=== PATIENT | female | born 1980 | race American Indian/Alaskan Native ===

== ENCOUNTER 2017-08-28 06:22 | Day surgery (SDC) | payer MEDICAID ==
[2017-08-28] MEDS ORDERED: WATER FOR IRRIG STERILE IR ONE (07:08)
[2017-08-28] MEDS ORDERED: DIPRIVAN 10 MG/ML IV ONE ×2 (07:51→08:36)
[2017-08-28] MEDS ORDERED: NACL 0.9% 1000 ML 1,000 ML IV SCH (08:00)
--- NOTE | 2017-08-28 08:12 | Anesthesia Day of Surgery ---
Anesthesia Day of Surgery - Day of Surgery Patient Examined: Yes Patient H&P Reviewed: Yes Patient is NPO: Yes
--- NOTE | 2017-08-28 08:12 | Anesthesia Consultation ---
Anesthesia Consult and Med Hx Date of service: 08/28/17 - Airway Anesthetic Teeth Evaluation: Good ROM Head & Neck: Adequate Mental/Hyoid Distance: Adequate Mallampati Class: Class II Intubation Access Assessment: Probably Good - Pulmonary Exam CTA: Yes - Cardiac Exam Cardiac Exam: RRR - Pre-Operative Health Status ASA Pre-Surgery Classification: ASA3 Proposed Anesthetic Plan: MAC - Pulmonary Hx Smoking: No Hx Sleep Apnea: Yes (cpap) - Hematic Hx Anemia: No (thalassemia) - Other Systems Hx Alcohol Use: Yes (occasional) Hx Substance Use: Yes (isabella stopped couple months ago) Hx Obesity: Yes
--- NOTE | 2017-08-28 08:30 | Operative Report ---
Operative Report Operative Report: OPERATIVE REPORT - EGD DATE 08/28/17 SURGERY: Upper endoscopy. SURGEON: Dr. Enrique M.D. [employer]ILLWR[employer] SUPERVISOR: Sergio Guido DO PRE OP DX: dyspepsia POST OP DX: small hiatal hernia TYPE OF ANESTHESIA: MAC. ESTIMATED BLOOD LOSS: None. COMPLICATIONS: None. SPECIMENS REMOVED: biopsy of GE junction FINDINGS: 1. Small hiatal hernia. 2. Otherwise, normal stomach and first portion of duodenum. 3. Irregular border at GE junction INDICATIONS:INDICATION FOR PROCEDURE: Patient is a 36-year-old female with a long history of morbid obesity. She is planned to have a weight loss procedure and is here for preoperative planning EGD to assess the anatomy of her stomach. PROCEDURE DETAILS: After consent was reviewed, patient was taken back to the operating room where patient was placed in the left lateral decubitus position and a bite block was placed in the mouth. After a time-out was called, MAC anesthesia was initiated. I then passed the endoscope into her oropharynx, into her esophagus, visualized the entire esophagus, which showed an irregular border at the GE junction. . I then visualized the stomach and the first portion of the duodenum and there were no abnormalities I could clearly visualize. I then retroflexed the scope in the stomach and visualized the hiatus and I could see a small hiatal hernia. I then desufflated the stomach and removed the endoscope. Patient tolerated procedure well and was transferred to recovery room in good and stable condition.
--- NOTE | 2017-08-28 08:31 | Discharge Summary ---
Providers - Providers Attending physician: RENEA SCOTT Primary care physician: RAYO KENDALL Hospitalization Hospital course: Pt presented for an EGD for upcoming bariatric surgery. She tolerated the procedure well. Disposition: - TO HOME OR SELFCARE Core Measure Documentation - Palliative Care Palliative Care/ Comfort Measures: Not Applicable - Core Measures Any of the following diagnoses?: none Exam - Physical Exam Narrative exam: no change from prior - Constitutional Vitals: Temp Pulse Resp BP Pulse Ox 98.1 F 63 15 122/72 95 08/28/17 08:03 08/28/17 08:03 08/28/17 08:03 08/28/17 08:03 08/28/17 08:03 Plan Additional Instructions: Follow up for surgery Follow up with: RAYO KENDALL MD [Primary Care Provider] - 7 Days
[2017-08-28 09:06] VITALS: BP 119/57
--- NOTE | 2017-08-28 09:22 | Post Anesthesia Evaluation ---
- Post Anesthesia Evaluation Patient Participated: Yes Airway Patent: Yes Stable Respiratory Function: Yes Nausea/Vomiting: No Temp > 96.8F: Yes Pain Manageable: Yes Adequeate Hydration: Yes Anesthesia Complications: No Block Receding Appropriately: Not Applicable Patient on Ventilator: No
== END 2017-08-28 06:23 | disposition home or self-care (01) ==
LOC: GIO 06:22
PROVIDERS: ATTEND Specialist
DX: K30 Functional dyspepsia (principal); K44.9 Diaphragmatic hernia without obstruction or gangrene; K21.9 Gastro-esophageal reflux disease without esophagitis; G47.30 Sleep apnea, unspecified; E66.01 Morbid (severe) obesity due to excess calories; Z68.42 Body mass index [BMI] 45.0-49.9, adult; Z99.89 Dependence on other enabling machines and devices; Z79.01 Long term (current) use of anticoagulants; Z79.899 Other long term (current) drug therapy; Z86.718 Personal history of other venous thrombosis and embolism
CPT/HCPCS: 43239; 81025; 88305; 88342; J2704; J7030; 88312